=== PATIENT | female | born 1990 | race Caucasian/White ===

== ENCOUNTER → 2017-09-29 | Outpatient (CLI) | payer BC ==
[2017-09-29 15:42] LABS: Basophils % (A) 0 %; Eosinophils % (A) 0 %; HCT 39.2 % (34.0-46.0); HGB 13.5 gm/dL (11.4-16.0); Lymphocytes # (A) 0.8 k/uL (1.0-4.8); Lymphocytes % (A) 7 %; MCH 30.7 pg (25.0-35.0); MCHC 34.4 g/dL (31.0-37.0); MCV 89.2 fL (80.0-100.0); Mean Platelet Volume 8.8; Monocytes # (A) 0.4 k/uL (0-1.0); Monocytes % (A) 3 %; Neutrophils # (A) 10.6 k/uL (1.3-7.7); Neutrophils % (A) 90 %; Platelet Count 260 k/uL (150-450); RDW 12.9 % (11.5-15.5); WBC 11.8 k/uL (3.8-10.6)
[2017-09-29 16:15] LABS: ALT 16 U/L (9-52); AST 19 U/L (14-36); Albumin 4.6 g/dL (3.5-5.0); Alkaline Phosphatase 89 U/L (38-126); Anion Gap 13 mmol/L; Blood Urea Nitrogen 10 mg/dL (7-17); Calcium 9.6 mg/dL (8.4-10.2); Carbon Dioxide 28 mmol/L (22-30); Chloride 103 mmol/L (98-107); Glucose 103 mg/dL (74-99); Sodium 144 mmol/L (137-145); Total Bilirubin 0.4 mg/dL (0.2-1.3)
[2017-09-29 16:23] LABS: T4, Free (Free Thyroxine) 1.12 ng/dL (0.78-2.19)
== END | disposition home or self-care (01) ==
LOC: LABWHC1 15:05
PROVIDERS: ATTEND Physician Assistant Medical
DX: L50.8 Other urticaria (principal)
CPT/HCPCS: 36415; 80053; 84439; 84443; 84481; 85025; 86038

== ENCOUNTER → 2020-06-10 | Outpatient (CLI) | payer BC ==
--- NOTE | 2020-06-10 18:26 | CT ---
EXAMINATION TYPE: CT abdomen pelvis wo con DATE OF EXAM: 06/10/2020 COMPARISON: None available. HISTORY: abdominal pain, diarrhea CT DLP: 202.9 mGycm Automated exposure control for dose reduction was used. TECHNIQUE: Helical acquisition of images was performed from the lung bases through the pelvis. FINDINGS: LUNG BASES: No significant abnormality is appreciated. LIVER/GB: No significant abnormality is appreciated. PANCREAS: No significant abnormality is seen. SPLEEN: No significant abnormality is seen. ADRENALS: No significant abnormality is seen. KIDNEYS: No significant abnormality is seen. FREE AIR: No free air is visualized RETROPERITONEAL ADENOPATHY: None visualized REPRODUCTIVE ORGANS: No significant abnormality is seen URINARY BLADDER: No significant abnormality is seen. PELVIC ADENOPATHY: None visualized. OSSEOUS STRUCTURES: Moderate disc bulge at L4-L5 and L5-S1. BOWEL: No significant abnormality is seen. OTHER: Pelvic phleboliths are seen. IMPRESSION: NO ACUTE ABNORMALITY. L4-S1 SPONDYLOSIS WITH MODERATE DISC BULGE. IF CLINICALLY INDICATED, FURTHER EVALUATION WITH NONEMERG ENT OUTPATIENT MRI MAY BE OBTAINED.
== END | disposition home or self-care (01) ==
LOC: RADCTMAIN 17:37
PROVIDERS: ATTEND Family Medicine
DX: R10.9 Unspecified abdominal pain (principal); R19.7 Diarrhea, unspecified
CPT/HCPCS: 74176

== ENCOUNTER 2021-06-11 12:52 | Emergency (ER) | payer BC ==
[2021-06-11 13:03] VITALS: PULSE 74
[2021-06-11] MEDS ORDERED: SODIUM CHLORIDE 0.9% 1,000 ML IV STA (14:21)
[2021-06-11 14:40] LABS: Basophils % (A) 0 %; Eosinophils # (A) 0.1 k/uL (0-0.7); Eosinophils % (A) 1 %; HCT 33.6 % (34.0-46.0); HGB 11.8 gm/dL (11.4-16.0); Lymphocytes # (A) 1.8 k/uL (1.0-4.8); Lymphocytes % (A) 25 %; MCH 32.6 pg (25.0-35.0); Mean Platelet Volume 8.6; Monocytes # (A) 0.4 k/uL (0-1.0); Monocytes % (A) 5 %; Neutrophils % (A) 67 %; Platelet Count 239 k/uL (150-450); RBC 3.61 m/uL (3.80-5.40); RDW 12.6 % (11.5-15.5); WBC 7.4 k/uL (3.8-10.6)
[2021-06-11] MEDS ORDERED: ACETAMINOPHEN TAB 500 MG TAB PO STA (14:47)
[2021-06-11 14:49] LABS: ALT 34 U/L (4-34); AST 42 U/L (14-36); African American GFR (CKD) >90 (>60 ml/min/1.73 sqM); Albumin 4.5 g/dL (3.5-5.0); Alkaline Phosphatase 76 U/L (38-126); Anion Gap 8 mmol/L; Blood Urea Nitrogen 16 mg/dL (7-17); Calcium 9.3 mg/dL (8.4-10.2); Carbon Dioxide 25 mmol/L (22-30); Chloride 104 mmol/L (98-107); Glucose 93 mg/dL (74-99); Non-African American GFR(CKD) >90 (>60 ml/min/1.73 sqM); Potassium 4.1 mmol/L (3.5-5.1); Sodium 137 mmol/L (137-145); Total Bilirubin 0.7 mg/dL (0.2-1.3); Total Protein 7.3 g/dL (6.3-8.2)
[2021-06-11 14:51] LABS: Appearance,Urine Cloudy (Clear); Bacteria,Urine Few /hpf; Bilirubin,Urine Negative (Negative); Blood,Urine Large (Negative); Budding Yeast,Urine Few /hpf; Color,Urine Yellow; Glucose,Urine (UA) Negative (Negative); Ketones,Urine Trace (Negative); Leukocyte Esterase,Urine Trace (Negative); Mucus,Urine Moderate /hpf; Nitrite,Urine Negative (Negative); PH, Urine 7.5 (5.0-8.0); Protein,Urine Trace (Negative); RBC,Urine >182 /hpf (0-5); Specific Gravity,Urine 1.017 (1.001-1.035); Squamous Epithelial Cell,Urine 1 /hpf (0-4); Urobilinogen,Urine <2.0 mg/dL (<2.0); WBC,Urine 2 /hpf (0-5)
--- NOTE | 2021-06-11 15:05 | ED ---
Female Urogenital HPI - General Chief complaint: Vaginal Bleeding Stated complaint: Med Reaction/Vaginal Bleeding Time Seen by Provider: 06/11/21 13:55 Source: patient Mode of arrival: ambulatory Limitations: no limitations - History of Present Illness Initial comments: This 30-year-old female is a [id number] that presents to the emergency department with vaginal bleeding and abdominal cramping since [id number]. [facility] [place] [facility] due to her wanting to have an . Patient states she was given 1 pill on June 03 and 4 pills to take on June 04 which she took as prescribed. Patient states states since taking these pills she has had heavy vaginal bleeding, clots, and abdominal cramping. Patient states she was 71/2 weeks before getting her . Patient states she has had one prior miscarriage in her past with no full-term pregnancies. Patient states she has intermittent abdominal pain and cramping as well as a stabbing feeling. Patient denies any fever, vomiting, chest pain, shortness of breath, change of vision, change in bowel or bladder, headache. - Related Data Home Medications Medication Instructions Recorded Confirmed Grass Fed Intestine Supplement 1 tab PO AC-TID 04/03/21 valACYclovir HCL [Valtrex] 1,000 mg PO DAILY 04/03/21 04/03/21 Allergies Allergy/AdvReac Type Severity Reaction Status Date / Time orange Allergy Rash/Hives Verified 06/11/21 12:59 Review of Systems ROS Statement: Those systems with pertinent positive or pertinent negative responses have been documented in the HPI. ROS Other: All systems not noted in ROS Statement are negative. Past Medical History Past Medical History: Asthma Additional Past Medical History / Comment(s): bloating & abd. pain @times, burning upper abd., sharp pain around belly button frequently, has lost weight in last few years & has never been able to put weight back on, has had black s tools in past, used to have hard stools, hx. kidney stone, grandpa had colon cancer History of Any Multi-Drug Resistant Organisms: None Reported Past Surgical History: No Surgical Hx Reported Past Anesthesia/Blood Transfusion Reactions: Family History of Problems w/ Anesthesia Past Psychological History: No Psychological Hx Reported Smoking Status: Never smoker Past Alcohol Use History: None Reported Past Drug Use History: None Reported - Past Family History Mother Family Medical History: Cancer Additional Family Medical History / Comment(s): breast, skin & cervical cancer, colitis General Exam Limitations: no limitations General appearance: alert, in no apparent distress Head exam: Present: atraumatic, normocephalic Eye exam: Present: normal appearance, EOMI ENT exam: Present: normal exam, mucous membranes moist Neck exam: Present: normal inspection, full ROM Respiratory exam: Present: normal lung sounds bilaterally. Absent: respiratory distress, wheezes, rales, rhonchi, stridor Cardiovascular Exam: Present: regular rate, normal rhythm, normal heart sounds. Absent: systolic murmur, diastolic murmur, rubs, gallop, clicks GI/Abdominal exam: Present: soft, tenderness (Bilateral lower quadrants tender to palpation), normal bowel sounds. Absent: distended, guarding, rebound, rigid Speculum exam: Present: vaginal bleeding (Bleeding with a couple dime sized cl ots present) Extremities exam: Present: normal inspection, full ROM, normal capillary refill. Absent: tenderness, pedal edema, joint swelling, calf tenderness Back exam: Present: normal inspection. Absent: tenderness, CVA tenderness (R), CVA tenderness (L), paraspinal tenderness, vertebral tenderness Neurological exam: Present: alert, oriented X3 Psychiatric exam: Present: normal affect, normal mood Skin exam: Present: warm, dry, intact, normal color. Absent: rash Course Vital Signs 06/11/21 06/11/21 12:59 17:05 Temperature 98.2 F 98.6 F Pulse Rate 74 74 Respiratory 18 20 Rate Blood Pressure 105/61 94/60 O2 Sat by Pulse 98 98 Oximetry Medical Decision Making - Medical Decision Making This 30-year-old female presents to the emergency department with vaginal bleeding and abdominal cramping after taking mifepristone and another medication prescribed by Dr. Elizondo at [facility] due to wanting to have an on 06/03/21 and 06/04/2021. Labs: Hbg 11.8, HCT 33.6, PT 10.2, INR 0.9, APTT 25.2 UA negative for nitrates or white blood cells. Blood type O+ An vaginal ultrasound impression: Uterus is heterogenous. The endometrium however appears to be thickened radiating up to 2.6 cm and heterogenous with vascularity. Cannot exclude retained products. Correlate clinically. Feculent exam revealed mild bleeding coming from the cervix with a couple times size clots present. Spoke with Dr. Mcintosh who stated if there wasn't an excessive amount of blood on speculum exam that patient may follow up with him in office tomorrow for po ssible D&C. Strict return precautions given to patient. Patient is agreeable to plan. Patient sent home in stable condition. Attending is Dr. Chery. - Lab Data Result diagrams: 06/11/21 14:21 06/11/21 14:21 Lab Results 06/11/21 06/11/21 06/11/21 Range/Units 14:10 14:21 14:21 WBC 7.4 (3.8-10.6) k/uL RBC 3.61 L (3.80-5.40) m/uL Hgb 11.8 (11.4-16.0) gm/dL Hct 33.6 L (34.0-46.0) % MCV 93.0 (80.0-100.0) fL MCH 32.6 (25.0-35.0) pg MCHC 35.0 (31.0-37.0) g/dL RDW 12.6 (11.5-15.5) % Plt Count 239 (150-450) k/uL MPV 8.6 Neutrophils % 67 % Lymphocytes % 25 % Monocytes % 5 % Eosinophils % 1 % Basophils % 0 % Neutrophils # 5.0 (1.3-7.7) k/uL Lymphocytes # 1.8 (1.0-4.8) k/uL Monocytes # 0.4 (0-1.0) k/uL Eosinophils # 0.1 (0-0.7) k/uL Basophils # 0.0 (0-0.2) k/uL PT (9.0-12.0) sec INR (<1.2) APTT (22.0-30.0) sec Sodium 137 (137-145) mmol/L Potassium 4.1 (3.5-5.1) mmol/L Chloride 104 (98-107) mmol/L Carbon Dioxide 25 (22-30) mmol/L Anion Gap 8 mmol/L BUN 16 (7-17) mg/dL Creatinine 0.74 (0.52-1.04) mg/dL Est GFR (CKD-EPI)AfAm >90 (>60 ml/min/1.73 sqM) Est GFR (CKD-EPI)NonAf >90 (>60 ml/min/1.73 sqM) Glucose 93 (74-99) mg/dL Plasma Lactic Acid Allen (0.7-2.0) mmol/L Calcium 9.3 (8.4-10.2) mg/dL Total Bilirubin 0.7 (0.2-1.3) mg/dL AST 42 H (14-36) U/L ALT 34 (4-34) U/L Alkaline Phosphatase 76 (38-126) U/L Total Protein 7.3 (6.3-8.2) g/dL Albumin 4.5 (3.5-5.0) g/dL HCG, Quant mIU/mL Urine Color Urine Appearance (Clear) Urine pH (5.0-8.0) Ur Specific Dav[place] (1.001-1.035) Urine Protein (Negative) Urine Glucose (UA) (Negative) Urine Ketones (Negative) Urine Blood (Negative) Urine Nitrite (Negative) Urine Bilirubin (Negative) Urine Urobilinogen (<2.0) mg/dL Ur Leukocyte Esterase (Negative) Urine RBC (0-5) /hpf Urine WBC (0-5) /hpf Ur Squamous Epith Cells (0-4) /hpf Urine Bacteria (None) /hpf Urine Mucus (None) /hpf Urine Yeast (Budding) (None) /hpf Blood Type Blood Type Confirm O Positive Blood Type Recheck Bld Type Recheck Status Antibody Screen Spec Expiration Date 06/11/21 06/11/21 06/11/21 Range/Units 14:21 14:29 14:29 WBC (3.8-10.6) k/uL RBC (3.80-5.40) m/uL Hgb (11.4-16.0) gm/dL Hct (34.0-46.0) % MCV (80.0-100.0) fL MCH (25.0-35.0) pg MCHC (31.0-37.0) g/dL RDW (11.5-15.5) % Plt Count (150-450) k/uL MPV Neutrophils % % Lymphocytes % % Monocytes % % Eosinophils % % Basophils % % Neutrophils # (1.3-7.7) k/uL Lymphocytes # (1.0-4.8) k/uL Monocytes # (0-1.0) k/uL Eosinophils # (0-0.7) k/uL Basophils # (0-0.2) k/uL PT (9.0-12.0) sec INR (<1.2) APTT (22.0-30.0) sec Sodium (137-145) mmol/L Potassium (3.5-5.1) mmol/L Chloride (98-107) mmol/L Carbon Dioxide (22-30) mmol/L Anion Gap mmol/L BUN (7-17) mg/dL Creatinine (0.52-1.04) mg/dL Est GFR (CKD-EPI)AfAm (>60 ml/min/1.73 sqM) Est GFR (CKD-EPI)NonAf (>60 ml/min/1.73 sqM) Glucose (74-99) mg/dL Plasma Lactic Acid Allen (0.7-2.0) mmol/L Calcium (8.4-10.2) mg/dL Total Bilirubin (0.2-1.3) mg/dL AST (14-36) U/L ALT (4-34) U/L Alkaline Phosphatase (38-126) U/L Total Protein (6.3-8.2) g/dL Albumin (3.5-5.0) g/dL HCG, Quant 48698.6 mIU/mL Urine Color Yellow Urine Appearance Cloudy H (Clear) Urine pH 7.5 (5.0-8.0) Ur Specific [place] 1.017 (1.001-1.035) Urine Protein Trace H (Negative) Urine Glucose (UA) Negative (Negative) Urine Ketones Trace H (Negative) Urine Blood Large H (Negative) Urine Nitrite Negative (Negative) Urine Bilirubin Negative (Negative) Urine Urobilinogen <2.0 (<2.0) mg/dL Ur Leukocyte Esterase Trace H (Negative) Urine RBC >182 H (0-5) /hpf Urine WBC 2 (0-5) /hpf Ur Squamous Epith Cells 1 (0-4) /hpf Urine Bacteria Few H (None) /hpf Urine Mucus Moderate H (None) /hpf Urine Yeast (Budding) Few H (None) /hpf Blood Type O Positive Blood Type Confirm Blood Type Recheck No Previous Record Bld Type Recheck Status CABO Indicated Antibody Screen NEGATIVE Spec Expiration Date 06/14/2021 - 232006/11/21 06/11/21 Range/Units 14:29 15:05 WBC (3.8-10.6) k/uL RBC (3.80-5.40) m/uL Hgb (11.4-16.0) gm/dL Hct (34.0-46.0) % MCV (80.0-100.0) fL MCH (25.0-35.0) pg MCHC (31.0-37.0) g/dL RDW (11.5-15.5) % Plt Count (150-450) k/uL MPV Neutrophils % % Lymphocytes % % Monocytes % % Eosinophils % % Basophils % % Neutrophils # (1.3-7.7) k/uL Lymphocytes # (1.0-4.8) k/uL Monocytes # (0-1.0) k/uL Eosinophils # (0-0.7) k/uL Basophils # (0-0.2) k/uL PT 10.2 (9.0-12.0) sec INR 0.9 (<1.2) APTT 25.2 (22.0-30.0) sec Sodium (137-145) mmol/L Potassium (3.5-5.1) mmol/L Chloride (98-107) mmol/L Carbon Dioxide (22-30) mmol/L Anion Gap mmol/L BUN (7-17) mg/dL Creatinine (0.52-1.04) mg/dL Est GFR (CKD-EPI)AfAm (>60 ml/min/1.73 sqM) Est GFR (CKD-EPI)NonAf (>60 ml/min/1.73 sqM) Glucose (74-99) mg/dL Plasma Lactic Acid Allen 0.6 L (0.7-2.0) mmol/L Calcium (8.4-10.2) mg/dL Total Bilirubin (0.2-1.3) mg/dL AST (14-36) U/L ALT (4-34) U/L Alkaline Phosphatase (38-126) U/L Total Protein (6.3-8.2) g/dL Albumin (3.5-5.0) g/dL HCG, Quant mIU/mL Urine Color Urine Appearance (Clear) Urine pH (5.0-8.0) Ur Specific [place] (1.001-1.035) Urine Protein (Negative) Urine Glucose (UA) (Negative) Urine Ketones (Negative) Urine Blood (Negative) Urine Nitrite (Negative) Urine Bilirubin (Negative) Urine Urobilinogen (<2.0) mg/dL Ur Leukocyte Esterase (Negative) Urine RBC (0-5) /hpf Urine WBC (0-5) /hpf Ur Squamous Epith Cells (0-4) /hpf Urine Bacteria (None) /hpf Urine Mucus (None) /hpf Urine Yeast (Budding) (None) /hpf Blood Type Blood Type Confirm Blood Type Recheck Bld Type Recheck Status Antibody Screen Spec Expiration Date Disposition Clinical Impression: Vaginal bleeding, Incomplete Disposition: HOME SELF-CARE Condition: Stable Instructions (If sedation given, give patient instructions): Dysfunctional Uterine Bleeding (ED) Additional Instructions: Please follow with tomorrow 06/12/2121. Please return to the emergency department with any concerning, new, or worsening symptoms. Is patient prescribed a controlled substance at d/c from ED?: No Referrals: Mirza Alvarez MD [Primary Care Provider] - 1-2 days Sid Mcintosh MD [STAFF PHYSICIAN] - 1-2 days Time of Disposition: 16:56
[2021-06-11 15:29] LABS: INR 0.9 (<1.2); Partial Thromboplastin Time 25.2 sec (22.0-30.0); Prothrombin Time 10.2 sec (9.0-12.0)
--- NOTE | 2021-06-11 15:54 | US ---
EXAMINATION TYPE: US transvaginal DATE OF EXAM: 06/11/2021 COMPARISON: NONE CLINICAL HISTORY: Heavy Bleeding/. TECHNIQUE: Transvaginal (TV). Date of LMP: Patient had May since then she has heavy bleeding which turned into spotting f or a couple of days but the last 2 days became very heavy. EXAM MEASUREMENTS: Uterus: 9.2 x 4.3 x 5.9cm Endometrial Stripe: 1.8 cm Right Ovary: not visualized Left Ovary: not visualized 1. Uterus: heterogeneous 2. Endometrium: difficult to ascertain where borders are measures 1.8-2.6cm grossly heterogeneous wi th increased vascularity 3. Right Ovary: obscured by overlying bowel gas 4. Left Ovary: obscured by overlying bowel gas 5. Bilateral Adnexa: wnl 6. Posterior cul-de-sac: wnl IMPRESSION: 1. The uterus is heterogeneous. The endometrium however appears to be thickened ranging up to 2.6 cm and heterogeneous with vascularity. Cannot exclude retained products. Correlate clinically.
[2021-06-11 17:06] VITALS: BP 94/60; RESP 20; TEMP 98.6
== END 2021-06-11 17:06 | disposition home or self-care (01) ==
LOC: EC 12:52
DX: O04.80 (Induced) termination of pregnancy with unspecified complications (principal); Z3A.01 Less than 8 weeks gestation of pregnancy; J45.909 Unspecified asthma, uncomplicated
CPT/HCPCS: 36415; 76830; 80053; 81001; 83605; 84702; 85025; 85610; 85730; 86850; 86900; 86901; 96360; 96361; 99284

== ENCOUNTER 2021-07-04 12:45 | Day surgery (SDC) | payer BC ==
[~2021-07-04 12:45] MED LIST: Pre Op ABX Message 1 EACH MISC MISCELLANE ONE
[2021-07-04] MEDS ORDERED: LACTATED RINGERS 1,000 ML IV ONE ×2 (13:03)
--- NOTE | 2021-07-04 13:16 | P.HPOB ---
History of Present Illness H&P Date: 07/04/21 Chief Complaint: Incomplete The patient is a 30-year-old 1 para 0 who underwent elective interruption of and very early gestation approximate 3-4 weeks ago using Cytotec through the outpatient clinic. She had moderate bleeding and did pass some tissue but continued to have ongoing bleeding and pain prompting presentation emergency room. She was deemed stable to follow-up in the office at which time some further tissue was noted in the cervical os and removed. Her bleeding continued to be fairly minimal with no ongoing significance symptoms. Following hCGs, she has continued to have a very slow leena of her hCG levels which most recently remained at approximately 2300. She presented today with increasing pain and was sent for ultrasound to rule out ectopic . At that time, her findings were consistent with retained products of conception though she also has a 5 cm right ovarian simple cyst. She was counseled regarding options and agreed to undergo dilation and curettage. Obstetrical history: 1 para 0 with current statistics and findings listed above. Gynecologic history: Unremarkable with no history of any infections to include STDs. Review of Systems Review of systems is confined to history of present illness. Past Medical History Past Medical History: Asthma Additional Past Medical History / Comment(s): bloating & abd. pain @times, burning upper abd., sharp pain around belly button frequently, has lost weight in last few years & has never been able to put weight back on, has had black stools in past, used to have hard stools, hx. kidney stone, grandpa had colon cancer History of Any Multi-Drug Resistant Organisms: None Reported Past Surgical History: No Surgical Hx Reported Past Anesthesia/Blood Transfusion Reactions: Family History of Problems w/ Anesthesia Past Psychological History: No Psychological Hx Reported Smoking Status: Never smoker Past Alcohol Use History: None Reported Past Drug Use History: None Reported - Past Family History Mother Family Medical History: Cancer Additional Family Medical History / Comment(s): breast, skin & cervical cancer, colitis Medications and Allergies Home Medications Medication Instructions Recorded Confirmed Type valACYclovir HCL [Valtrex] 1,000 mg PO DAILY 04/03/21 04/03/21 History Allergies Allergy/AdvReac Type Severity Reaction Status Date / Time orange Allergy Rash/Hives Verified 07/04/21 13:04 Exam In general, this is a well-developed, well-nourished white female in some discomfort secondary to cramping. Her heart has a regular rhythm and rate without murmur. Her lungs are clear to auscultation bilaterally in all mays. Her abdomen is nondistended, soft, nontender, and without any palpable masses, hepatosplenic, or hernias. Her extremities without any cyanosis, clubbing, or edema and are nontender to palpation bilaterally. Pelvic examination is deferred today to the operating room though in the past she has had a roughly 4- 5 week anteverted mobile normal nontender uterus. The adnexa have been normal and nontender bilaterally in the past. Assessment and Plan (1) Incomplete Current Visit: No Status: Acute Code(s): O03.4 - INCOMPLETE SPONTANEOUS WITHOUT COMPLICATION SNOMED Code(s): 403199890 Plan: The patient was returned regarding options including conservative management versus repeat treatment with Cytotec versus dilation and curettage. She has opted for definitive treatment with dilation and curettage. The risks and, occasions the procedure been thoroughly discussed including the risk for bleeding, bleeding, transfusion, infection, and injury to local structures to primarily include uterine perforation and possible subsequent Asherman syndrome. She has understood all of this and agreed to proceed.
[2021-07-04] MEDS ORDERED: ONDANSETRON 4 MG/2 ML VIAL IVP ONE (13:23)
[2021-07-04] MEDS ORDERED: DEXAMETHASONE SOD PHOSPHATE 4 MG/ML 1 ML VIAL IVP ONE (13:23)
[2021-07-04] MEDS ORDERED: ONDANSETRON 4 MG/2 ML VIAL ONE (13:23)
[2021-07-04] MEDS ORDERED: MIDAZOLAM 2 MG/2 ML VIAL ONE (13:30)
[2021-07-04] MEDS ORDERED: LIDOCAINE 1% INJ 10MG/ML (20 ML MDV) ONE (13:30)
[2021-07-04] MEDS ORDERED: fentaNYL (PF) 50 MCG/ML 2 ML AMP ONE (13:30)
[2021-07-04] MEDS ORDERED: PROPOFOL 10 MG/ML 20 ML VIAL IV ONE (13:30)
[2021-07-04] MEDS ORDERED: diphenhydrAMINE 50 MG/ML 1 ML VIAL IVP PRN (13:54)
[2021-07-04] MEDS ORDERED: SIMETHICONE 80 MG CHEWABLE PO PRN (13:54)
[2021-07-04] MEDS ORDERED: METOCLOPRAMIDE 5 MG/ML 2 ML VIAL IVP PRN (13:54)
[2021-07-04] MEDS ORDERED: Acetaminophen-Codeine 300-30mg TAB PO PRN ×2 (13:54)
[2021-07-04] MEDS ORDERED: IBUPROFEN 600 MG TAB PO PRN (13:54)
[2021-07-04] MEDS ORDERED: ONDANSETRON 4 MG/2 ML VIAL IVP PRN (13:54)
[2021-07-04] MEDS ORDERED: KETOROLAC 15 MG/ML 1 ML VIAL IVP PRN (13:54)
--- NOTE | 2021-07-04 13:59 | P.OP ---
Date of Procedure: 07/04/21 Preoperative Diagnosis: #1. Incomplete Postoperative Diagnosis: Same Procedure(s) Performed: #1. Dilation and aspiration curettage Anesthesia: other (Gen. by LMA) Surgeon: Sid Mcintosh Estimated Blood Loss (ml): 50 IV fluids (ml): 200 Urine output (ml): 0 Pathology: other (Intrauterine contents) Condition: stable Disposition: PACU Operative Findings: Preoperative pelvic examination demonstrated a roughly 5 week acutely anteverted and flexed mobile normal shaped uterus with normal adnexa bilaterally. Intraoperatively, the uterus sounded to 8 cm. A moderate amount of tissue was clearly seen passing through the tubing on the first and second pass with the aspiration curet. The typical gritty texture was encountered with the sharp curet and no further tissue was noted. The uterus was appreciably smaller fol lowing the procedure. Description of Procedure: The patient was prepped and draped in usual fashion after general anesthesia was a blister by the anesthesiologist. A weighted speculum was placed and the bladder catheterized with no urine noted as she had voided immediately prior to coming to the operating room. The anterior lip of the cervix was grasped with a single-tooth tenaculum and uterus sounded to 8 cm as noted above. Serial dilation was carried out to admit a #8 curved suction curet which was placed to the fundus of the uterus and suction applied. After building adequate suction, thorough and circumferential aspiration curettage was carried out from the fundus to the cervix with tissue very clearly being seen passing through the tubing. A second pass was made at which no significant further tissue was noted. The aspiration curet was set aside in favor of a small sharp curette which was utilized to thoroughly and circumferentially perform sharp curettage and sent the endometrial cavity with the typical gritty texture encountered throughout and no further tissue noted. One last pass was made with the aspiration curet at which time the uterus was appreciably smaller and no further tissue was noted. All instrumentation was removed. There is no significant ongoing bleeding either from the cervix or from the tenaculum site. Estimated blood loss for the case was approximately 50 mL. There were no complications. All sponge, instrument, and needle counts were correct. The patient tolerated the procedure well and proceeded to the recovery room in stable condition.
[2021-07-04 14:11] VITALS: TEMP 97
[2021-07-04] MEDS: HYDROmorphone 0.5 MG/0.5 ML SYRINGE IVP ONE ×2 (14:16→14:29)
[2021-07-04 14:19] VITALS: RESP 16
[2021-07-04] MEDS: LACTATED RINGERS 1,000 ML IV SCH ×2 (14:46→14:59)
[2021-07-04] MEDS ORDERED: KETOROLAC 30 MG/ML 1 ML VIAL IVP PRN (15:08)
[2021-07-04 15:23] VITALS: BP 112/69; PULSE 66
== END 2021-07-04 16:01 | disposition home or self-care (01) ==
LOC: OR 12:45
PROVIDERS: ATTEND Obstetrics & Gynecology
DX: O03.4 Incomplete spontaneous abortion without complication (principal); N83.291 Other ovarian cyst, right side; J45.909 Unspecified asthma, uncomplicated; Z87.442 Personal history of urinary calculi; Z80.0 Family history of malignant neoplasm of digestive organs; Z80.49 Family history of malignant neoplasm of other genital organs; Z80.3 Family history of malignant neoplasm of breast; Z80.8 Family history of malignant neoplasm of other organs or systems; Z83.79 Family history of other diseases of the digestive system; Z79.899 Other long term (current) drug therapy
CPT/HCPCS: 86900; 86901; 88305; 86850; 59820; J2250; J1100; J2405; J2001; J3010; J1885; J2704; J1170

== ENCOUNTER → 2021-07-04 | Outpatient (CLI) | payer BC ==
--- NOTE | 2021-07-04 12:20 | US ---
EXAMINATION TYPE: US transvaginal DATE OF EXAM: 07/04/2021 COMPARISON: US CLINICAL HISTORY: O26.851, R68.89. Pt states h/o miscarriage beginning of May, having bleeding an d pain TECHNIQUE: Transvaginal (TV). Transvaginal sonographic images of the pelvis were acquired. EXAM MEASUREMENTS: Uterus: 9.0 x 3.6 x 4.0 cm Endometrial Stripe: 1.6 at fundus, 2.0 cm at lower uterine segment Right Ovary: 5.6 x 5.0 x 5.0 cm 1. Uterus: Anteverted wnl 2. Endometrium: Thickened, heterogeneous with increased vascularity suggesting retained products 3. Right Ovary: Simple cyst= 4.9 x 4.4 x 4.9 cm 4. Left Ovary: Obscured by overlying bowel gas Spectral, color doppler imaging shows good blood flow within the right ovary; there is no evidence for ovarian torsion-right. 5. Bilateral Adnexa: wnl 6. Posterior cul-de-sac: wnl Results called to Kye at 's office at time of exam IMPRESSION: Correlate for retained products of conception.
== END | disposition home or self-care (01) ==
LOC: RADUSWWP 11:43
PROVIDERS: ATTEND Obstetrics & Gynecology
DX: O26.851 Spotting complicating pregnancy, first trimester (principal); Z3A.00 Weeks of gestation of pregnancy not specified
CPT/HCPCS: 76830